=== PATIENT | male | born 1975 ===

== ENCOUNTER 2020-04-15 07:15 | Outpatient (REF) | payer BC, SELFPAY ==
[2020-04-15 07:47] LABS: Basophils Percent Auto 0.3 % (0-2); Eosinophils Absolute Auto 0.2 X10*3/uL (0.0-0.4); Eosinophils Percent Auto 2.7 % (0-4); Hematocrit 46.9 % (42-52); Hemoglobin 15.5 g/dl (14.0-18.0); Imm Gran Abs Auto 0.03 X10*3/uL (0.00-0.03); Imm Gran Pct Auto 0.4 % (0.0-0.4); Lymphocytes Absolute Auto 2.2 X10*3/uL (1.2-4.9); Lymphocytes Percent Auto 28.4 % (20-40); MANUAL DIFF FLAG NO; Mean Corpuscular Hemoglobin 29.9 pg (27.0-33.0); Mean Corpuscular Volume 90.4 fL (80-98); Mean Platelet Volume 12.2 fL (9.4-12.4); Monocytes Absolute Auto 0.5 X10*3/uL (0.1-1.2); Monocytes Percent Auto 6.7 % (2-11); Neutrophils Absolute Auto 4.8 X10*3/uL (2.0-8.3); Neutrophils Percent Auto 61.5 % (45-73); Platelet Count 213 X10*3/uL (160-400); Red Blood Count 5.19 X10*6/uL (4.60-5.80); Red Cell Distribution Width 12.6 % (11.0-16.0); White Blood Count 7.8 X10*3/uL (4.8-10.8)
[2020-04-15 08:24] LABS: Alanine Aminotransferase 22 U/L (0-40); Albumin Level 4.5 g/dL (3.5-5.0); Alkaline Phosphatase 96 U/L (39-117); Anion Gap 14 (12-20); Aspartate Amino Transferase 17 U/L (5-37); Bilirubin Total 1.4 mg/dL (0.0-1.0); Blood Urea Nitrogen 17 mg/dL (9-16); Calcium 9.1 mg/dL (8.4-10.2); Carbon Dioxide 26 mmol/L (22-29); Chloride 106 mmol/L (96-108); Cholesterol 111 mg/dL; Estimated Glomerular Filt Rate > 60; Glucose Fasting 116 mg/dL (60-99); HDL Cholesterol 39 mg/dL; LDL Cholesterol Calculated 62 mg/dl; Potassium 4.1 mmol/L (3.3-5.1); Sodium 142 mmol/L (135-145); Total Protein 7.6 g/dL (6.5-8.0); Triglycerides 53 mg/dL
[2020-04-15 08:26] LABS: Estimated Average Glucose 126 mg/dL
[2020-04-15 08:30] LABS: Microalbum/Creatinine Ratio Ur 15.6 ug/mg cr
== END 2020-04-15 07:16 | disposition home or self-care (01) ==
LOC: HO.LAB 07:15
PROVIDERS: Visit Provider Internal Medicine Medical Oncology
DX: E10.9 Type 1 diabetes mellitus without complications (principal); E78.1 Pure hyperglyceridemia; E78.2 Mixed hyperlipidemia; E66.3 Overweight; Z87.891 Personal history of nicotine dependence
CPT/HCPCS: 36415; 80053; 80061; 82043; 83036; 85025

== ENCOUNTER 2021-05-05 07:16 | Outpatient (REF) | payer BC, SELFPAY ==
[2021-05-05 07:41] LABS: MANUAL DIFF FLAG NO
[2021-05-05 08:03] LABS: Basophils Percent Auto 0.3 % (0-2); Eosinophils Absolute Auto 0.2 X10*3/uL (0.0-0.4); Eosinophils Percent Auto 2.8 % (0-4); Hematocrit 46.3 % (42.0-52.0); Hemoglobin 15.2 g/dl (14.0-18.0); Imm Gran Abs Auto 0.02 X10*3/uL (0.00-0.03); Imm Gran Pct Auto 0.3 % (0.0-0.4); Lymphocytes Absolute Auto 2.3 X10*3/uL (1.2-4.9); Lymphocytes Percent Auto 31.7 % (20-40); Mean Corpuscular HGB Conc 32.8 g/dl (31.0-36.0); Mean Corpuscular Hemoglobin 29.5 pg (27.0-33.0); Mean Corpuscular Volume 89.9 fL (80.0-98.0); Mean Platelet Volume 12.1 fL (9.4-12.4); Monocytes Absolute Auto 0.6 X10*3/uL (0.1-1.2); Monocytes Percent Auto 7.7 % (2-11); Neutrophils Absolute Auto 4.1 x10*3/uL (2.0-8.3); Neutrophils Percent Auto 57.2 % (45-73); Platelet Count 210 X10*3/uL (160-400); Red Blood Count 5.15 X10*6/uL (4.60-5.80); Red Cell Distribution Width 12.5 % (11.0-16.0); White Blood Count 7.2 X10*3/uL (4.8-10.8)
[2021-05-05 08:19] LABS: Estimated Average Glucose 157 mg/dL; Hemoglobin A1c % 7.1 %
[2021-05-05 08:21] LABS: Alanine Aminotransferase 20 U/L (0-40); Albumin Level 4.2 g/dL (3.5-5.0); Alkaline Phosphatase 105 U/L (39-117); Anion Gap 11 (12-20); Aspartate Amino Transferase 15 U/L (5-37); Bilirubin Total 0.6 mg/dL (0.0-1.0); Blood Urea Nitrogen 15 mg/dL (9-16); Calcium 9.3 mg/dL (8.4-10.2); Carbon Dioxide 28 mmol/L (22-29); Chloride 108 mmol/L (96-108); Cholesterol 117 mg/dL; Estimated Glomerular Filt Rate > 60; Glucose Fasting 151 mg/dL (60-99); HDL Cholesterol 35 mg/dL; LDL Cholesterol Calculated 46 mg/dl; Potassium 4.6 mmol/L (3.3-5.1); Sodium 142 mmol/L (135-145); Total Protein 7.4 g/dL (6.5-8.0); Triglycerides 183 mg/dL
== END 2021-05-05 07:17 | disposition home or self-care (01) ==
LOC: HO.LAB 07:16
PROVIDERS: PCP Internal Medicine Medical Oncology; Visit Provider Internal Medicine Medical Oncology
DX: E10.9 Type 1 diabetes mellitus without complications (principal); E78.1 Pure hyperglyceridemia; E78.2 Mixed hyperlipidemia
CPT/HCPCS: 36415; 80053; 80061; 83036; 85025

== ENCOUNTER 2021-07-07 06:51 | Outpatient (REF) | payer BC, SELFPAY ==
[2021-07-07 07:07] LABS: MANUAL DIFF FLAG NO
[2021-07-07 07:47] LABS: Basophils Percent Auto 0.3 % (0-2); Eosinophils Absolute Auto 0.3 X10*3/uL (0.0-0.4); Eosinophils Percent Auto 3.2 % (0-4); Hematocrit 47.1 % (42.0-52.0); Hemoglobin 15.2 g/dl (14.0-18.0); Imm Gran Abs Auto 0.01 X10*3/uL (0.00-0.03); Imm Gran Pct Auto 0.1 % (0.0-0.4); Lymphocytes Absolute Auto 2.7 X10*3/uL (1.2-4.9); Lymphocytes Percent Auto 30.6 % (20-40); Mean Corpuscular HGB Conc 32.3 g/dl (31.0-36.0); Mean Corpuscular Hemoglobin 28.8 pg (27.0-33.0); Mean Corpuscular Volume 89.4 fL (80.0-98.0); Mean Platelet Volume 12.4 fL (9.4-12.4); Monocytes Absolute Auto 0.7 X10*3/uL (0.1-1.2); Monocytes Percent Auto 7.9 % (2-11); Neutrophils Percent Auto 57.9 % (45-73); Platelet Count 215 X10*3/uL (160-400); Red Blood Count 5.27 X10*6/uL (4.60-5.80); Red Cell Distribution Width 12.7 % (11.0-16.0); White Blood Count 8.7 X10*3/uL (4.8-10.8)
[2021-07-07 08:05] LABS: Estimated Average Glucose 143 mg/dL; Hemoglobin A1c % 6.6 %
[2021-07-07 08:11] LABS: Alanine Aminotransferase 23 U/L (0-40); Albumin Level 4.3 g/dL (3.5-5.0); Alkaline Phosphatase 96 U/L (39-117); Anion Gap 9 (12-20); Aspartate Amino Transferase 17 U/L (5-37); Bilirubin Total 0.7 mg/dL (0.0-1.0); Blood Urea Nitrogen 17 mg/dL (9-16); Calcium 9.3 mg/dL (8.4-10.2); Carbon Dioxide 28 mmol/L (22-29); Chloride 107 mmol/L (96-108); Estimated Glomerular Filt Rate > 60; Glucose Fasting 144 mg/dL (60-99); Potassium 4.1 mmol/L (3.3-5.1); Sodium 140 mmol/L (135-145); Total Protein 7.4 g/dL (6.5-8.0)
== END 2021-07-07 06:52 | disposition home or self-care (01) ==
LOC: HO.LAB 06:51
PROVIDERS: PCP Internal Medicine Medical Oncology; Visit Provider Internal Medicine Medical Oncology
DX: E10.9 Type 1 diabetes mellitus without complications (principal); E78.2 Mixed hyperlipidemia
CPT/HCPCS: 36415; 80053; 83036; 85025

== ENCOUNTER 2022-03-30 07:41 | Outpatient (REF) | payer BC, SELFPAY ==
[2022-03-30 07:49] LABS: MANUAL DIFF FLAG NO
[2022-03-30 08:31] LABS: Basophils Absolute Auto 0.1 X10*3/uL (0.0-0.2); Basophils Percent Auto 0.6 % (0-2); Eosinophils Absolute Auto 0.3 X10*3/uL (0.0-0.4); Eosinophils Percent Auto 2.9 % (0-4); Hematocrit 47.2 % (42.0-52.0); Hemoglobin 15.5 g/dl (14.0-18.0); Imm Gran Abs Auto 0.02 X10*3/uL (0.00-0.03); Imm Gran Pct Auto 0.2 % (0.0-0.4); Lymphocytes Absolute Auto 3.2 X10*3/uL (1.2-4.9); Lymphocytes Percent Auto 35.5 % (20-40); Mean Corpuscular HGB Conc 32.8 g/dl (31.0-36.0); Mean Corpuscular Hemoglobin 29.7 pg (27.0-33.0); Mean Corpuscular Volume 90.4 fL (80.0-98.0); Mean Platelet Volume 12.5 fL (9.4-12.4); Monocytes Absolute Auto 0.7 X10*3/uL (0.1-1.2); Monocytes Percent Auto 7.2 % (2-11); Neutrophils Absolute Auto 4.8 x10*3/uL (2.0-8.3); Neutrophils Percent Auto 53.6 % (45-73); Platelet Count 196 X10*3/uL (160-400); Red Blood Count 5.22 X10*6/uL (4.60-5.80); Red Cell Distribution Width 12.7 % (11.0-16.0)
[2022-03-30 08:44] LABS: Estimated Average Glucose 148 mg/dL; Hemoglobin A1c % 6.8 %
[2022-03-30 08:57] LABS: Alanine Aminotransferase 26 U/L (0-40); Albumin Level 4.4 g/dL (3.5-5.0); Alkaline Phosphatase 106 U/L (39-117); Anion Gap 10 (12-20); Aspartate Amino Transferase 16 U/L (5-37); Bilirubin Total 0.9 mg/dL (0.0-1.0); Blood Urea Nitrogen 18 mg/dL (9-16); Calcium 9.3 mg/dL (8.4-10.2); Carbon Dioxide 28 mmol/L (22-29); Chloride 110 mmol/L (96-108); Cholesterol 115 mg/dL; Estimated Glomerular Filt Rate > 60; Glucose Fasting 125 mg/dL (60-99); HDL Cholesterol 38 mg/dL; LDL Cholesterol Calculated 58 mg/dl; Potassium 4.1 mmol/L (3.3-5.1); Sodium 144 mmol/L (135-145); Total Protein 7.5 g/dL (6.5-8.0); Triglycerides 95 mg/dL
[2022-03-30 09:13] LABS: Prostate Specific Antigen 0.57 ng/mL (<0.05-4.0)
== END 2022-03-30 07:42 | disposition home or self-care (01) ==
LOC: HO.LAB 07:41
PROVIDERS: PCP Internal Medicine Medical Oncology; Visit Provider Internal Medicine Medical Oncology
DX: E10.9 Type 1 diabetes mellitus without complications (principal); E78.1 Pure hyperglyceridemia; E66.3 Overweight; Z12.5 Encounter for screening for malignant neoplasm of prostate
CPT/HCPCS: 36415; 80053; 80061; 83036; 84153; 85025

== ENCOUNTER 2022-07-13 07:05 | Outpatient (REF) | payer BC, SELFPAY ==
[2022-07-13 07:15] LABS: MANUAL DIFF FLAG NO
[2022-07-13 07:29] LABS: Basophils Percent Auto 0.3 % (0-2); Eosinophils Absolute Auto 0.2 X10*3/uL (0.0-0.4); Eosinophils Percent Auto 2.6 % (0-4); Hematocrit 49.7 % (42.0-52.0); Hemoglobin 16.1 g/dl (14.0-18.0); Imm Gran Abs Auto 0.03 X10*3/uL (0.00-0.03); Imm Gran Pct Auto 0.4 % (0.0-0.4); Lymphocytes Absolute Auto 2.1 X10*3/uL (1.2-4.9); Lymphocytes Percent Auto 30.1 % (20-40); Mean Corpuscular HGB Conc 32.4 g/dl (31.0-36.0); Mean Corpuscular Hemoglobin 29.7 pg (27.0-33.0); Mean Corpuscular Volume 91.5 fL (80.0-98.0); Mean Platelet Volume 12.3 fL (9.4-12.4); Monocytes Absolute Auto 0.5 X10*3/uL (0.1-1.2); Monocytes Percent Auto 7.2 % (2-11); Neutrophils Absolute Auto 4.1 x10*3/uL (2.0-8.3); Neutrophils Percent Auto 59.4 % (45-73); Platelet Count 194 X10*3/uL (160-400); Red Blood Count 5.43 X10*6/uL (4.60-5.80); Red Cell Distribution Width 13.3 % (11.0-16.0); White Blood Count 6.9 X10*3/uL (4.8-10.8)
[2022-07-13 07:38] LABS: Estimated Average Glucose 137 mg/dL; Hemoglobin A1c % 6.4 %
[2022-07-13 08:12] LABS: Alanine Aminotransferase 20 U/L (0-40); Albumin Level 4.5 g/dL (3.5-5.0); Alkaline Phosphatase 102 U/L (39-117); Anion Gap 15 (12-20); Aspartate Amino Transferase 16 U/L (5-37); Bilirubin Total 1.1 mg/dL (0.0-1.0); Blood Urea Nitrogen 15 mg/dL (9-16); Calcium 9.3 mg/dL (8.4-10.2); Carbon Dioxide 24 mmol/L (22-29); Chloride 109 mmol/L (96-108); Cholesterol 118 mg/dL; Estimated Glomerular Filt Rate > 60; Glucose Random 149 mg/dL (60-115); HDL Cholesterol 38 mg/dL; Potassium 4.9 mmol/L (3.3-5.1); Sodium 143 mmol/L (135-145); Total Protein 7.4 g/dL (6.5-8.0)
[2022-07-13 11:28] LABS: Prostate Specific Antigen 0.47 ng/mL (<0.05-4.0)
[2022-07-13 16:00] LABS: LDL Cholesterol Calculated 70 mg/dl; Triglycerides 52 mg/dL
== END 2022-07-13 07:06 | disposition home or self-care (01) ==
LOC: HO.LAB 07:05
PROVIDERS: PCP Internal Medicine Medical Oncology; Visit Provider Internal Medicine Medical Oncology
DX: Z12.5 Encounter for screening for malignant neoplasm of prostate (principal); E10.9 Type 1 diabetes mellitus without complications; E78.1 Pure hyperglyceridemia; E66.3 Overweight
CPT/HCPCS: 36415; 80053; 80061; 83036; 84153; 85025

== ENCOUNTER 2022-08-23 06:45 | Day surgery (SDC) | payer BC, SELFPAY ==
--- NOTE | 2022-08-22 12:03 | HO.ANESPROP2 ---
Documented by User: Sandi Rg NP 08/22/22 12:04 HPI - Anesthesia Eval Consult details Narrative: 47yo M for Colonoscopy PMFSH Past Medical History Medical History Diabetes Elevated cholesterol Surgical History Surgical History (Updated 08/23/22 @ 06:57 by Rebekah Rodriguez, RN) No pertinent past surgical history Social History Social History Patient Tobacco Use Status: Never used Tobacco Use of substances other than those prescribed or required for medical reasons: Yes Substance Use Frequency: Daily Are you DNR?: No Advance Directives: No Advance Directives Information Provided: Yes Meds Allergies Allergy/AdvReac Type Severity Reaction Status Date / Time No Known Allergies Allergy Unverified 12/02/19 17:44 [No Known Allergies*] Home Medications Medication Instructions Recorded Confirmed Last Taken Type atorvastatin 20 mg tablet 20 mg PO BEDTIME 08/22/22 08/22/22 Unknown History metformin 500 mg tablet,extended 1,000 mg PO BID 08/22/22 08/22/22 Unknown History release 24 hr Exam Exam Date and Time: August 22, 2022 1203 Pertinent Lab Results Pertinent Lab Results: Laboratory Tests 07/13/22 07/13/22 07:14 07:14 WBC 6.9 Hgb 16.1 Hct 49.7 Plt Count 194 Sodium 143 Potassium 4.9 Chloride 109 H Carbon Dioxide 24 BUN 15 Creatinine 0.97 Assessment and Plan Assessment Anesthesia Assessment: Chart Reviewed Documented by User: Niesha Otoole MD 08/23/22 08:45 PMFSH Past Medical History Medical History Diabetes Elevated cholesterol Family History Family history of problems with anesthesia: No Surgical History Surgical History (Updated 08/23/22 @ 06:57 by Rebekah Rodriguez RN) No pertinent past surgical history History of Problems with Anesthesia: No Social History Social History Patient Tobacco Use Status: Never used Tobacco Use of substances other than those prescribed or required for medical reasons: Yes Substance Use Frequency: Daily Are you DNR?: No Advance Directives: No Advance Directives Information Provided: Yes Meds Allergies Allergy/AdvReac Type Severity Reaction Status Date / Time No Known Allergies Allergy Unverified 12/02/19 17:44 [No Known Allergies*] Home Medications Medication Instructions Recorded Confirmed Last Taken Type atorvastatin 20 mg tablet 20 mg PO BEDTIME 08/22/22 08/22/22 Unknown History metformin 500 mg tablet,extended 1,000 mg PO BID 08/22/22 08/22/22 Unknown History release 24 hr Exam Airway Mallampati Class: II TM Dist: >3cm Neck ROM: Full Heart: rrr Lungs: cta Assessment and Plan Assessment Anesthesia Assessment: Anesthesia Plan Discussed (keith villarreal , last used last night ) Final Anesthetic Review Family History of Problems with Anesthesia: No History of Problems with Anesthesia: No NPO: Yes ASA Class: II Final Preanesthetic Review: No Changes in Pt Med Stat, Meds/Allgs Chart Reviewed, Consent Obtained/Reviewed and Anes Risks/Benef Reviewed Patient Risk: Low Procedure Risk: Low Anesthetic Plan Anesthetic Plan: MAC: Disposition: Standard PACU
[2022-08-23 06:58] VITALS: BMI 27.3
[2022-08-23 07:12] VITALS: BP 153/106; PULSE 75; RESP 15; TEMP 36.3; O2SAT 98
[2022-08-23] MEDS: Lactated Ringers 1,000 ML 100 ML IVCONT (07:18)
[2022-08-23 07:26] LABS: Glucose, Whole Blood 183 mg/dL (60-115)
--- NOTE | 2022-08-23 09:10 | MHC.SHP ---
Pre-Procedural Eval Section A Date of Service: 08/23/22 The patient is an INPATIENT: No Changes since office visit: No Cold of Flu in the past 2 weeks, No New Medical Problems, No Changes in Medication and No Patient answered all questions The History & Physical has been completed within 30 days and I have reviewed it.: Yes Section B Chief Complaint: screening Allergies: Allergies Allergy/AdvReac Type Severity Reaction Status Date / Time No Known Allergies Allergy Unverified 12/02/19 17:44 [No Known Allergies*] Plan I have reviewed the history and physical and performed a pertinent physical examination on my patient. No changes have occurred unless specified. Time Spent With Patient Time: Total time managing care of this patient today ____ minutes.
--- NOTE | 2022-08-23 09:44 | PM.OP ---
Brief Operative Note Date of Service: 08/23/22 Pre-op diagnosis: screening Procedure: colonoscopy Surgeon: Shay Martinez Anesthesia: MAC Was an Supervisor Spring Up used for this Procedure?: No Estimated blood loss (mL): 2 Pathology: other Condition: stable Disposition: PACU
[2022-08-23 09:47] VITALS: BP 131/92; PULSE 73; RESP 16; TEMP 36.5; O2SAT 100
[2022-08-23 10:02] VITALS: BP 147/109; PULSE 73; RESP 16; TEMP 36.3; O2SAT 98
--- NOTE | 2022-08-23 10:06 | OP_ITS ---
DATE OF SERVICE: 08/23/2022 SURGEON: Shay Martinez MD INDICATIONS: Colon cancer screening. PREOPERATIVE DIAGNOSIS: POSTOPERATIVE DIAGNOSIS: PROCEDURE PERFORMED: Colonoscopy to the terminal ileum with biopsy and snare polypectomy. ESTIMATED BLOOD LOSS: COMPLICATIONS: ANESTHESIA: Monitored anesthesia care. ASSISTANTS: SPECIMENS: DESCRIPTION OF PROCEDURE: History and physical was performed. The risks and benefits of the procedure were explained to the patient and informed consent was obtained. The patient was placed in the left lateral decubitus position. A digital rectal exam was performed and was found to be normal. The Olympus pediatric video colonoscope was introduced into the rectum and advanced to the cecum without difficulty. The cecum was identified by transillumination, palpation, and identification of ileocecal valve. Examination was performed. The scope was removed. He tolerated the procedure well and was returned to the recovery area in stable condition. FINDINGS: The terminal ileum was examined and appeared normal. The visualized colonic mucosa was normal. The quality of the prep was good. Two polyps in the cecum measuring less than 5 mm were removed with the biopsy forceps. At 20 cm was a 7 mm polyp, which was removed with a hot snare and recovered via suction. No other polyps were identified. There was mild to moderate diverticulosis of the sigmoid with scattered diverticula in the right colon. Retroflexed examination was normal. IMPRESSION: Colon polyps. RECOMMENDATION: Follow up the biopsy results. MD JUSTA Meeks/DONATO / [id number]
== END 2022-08-23 10:25 | disposition home or self-care (01) ==
PROVIDERS: PCP Internal Medicine Medical Oncology; Visit Provider Internal Medicine Gastroenterology
PROC: 0DJD8ZZ Inspection of Lower Intestinal Tract, Via Natural or Artificial Opening Endoscopic (ICD-10-PCS; CPT 45378; principal; 2022-08-23 08:20)
DX: Z12.11 Encounter for screening for malignant neoplasm of colon (principal); D12.0 Benign neoplasm of cecum; K63.5 Polyp of colon; K57.30 Diverticulosis of large intestine without perforation or abscess without bleeding; E78.00 Pure hypercholesterolemia, unspecified; E11.9 Type 2 diabetes mellitus without complications; Z79.84 Long term (current) use of oral hypoglycemic drugs
CPT/HCPCS: 45385; 45380; 82947; 88305

== ENCOUNTER 2022-09-03 21:08 | Emergency (ER) | payer BC, SELFPAY ==
[2022-09-03 21:26] VITALS: BP 190/115; PULSE 74; RESP 18; TEMP 36.2; O2SAT 98; BMI 27.3
--- NOTE | 2022-09-03 22:03 | MHC.EDTECH ---
PATIENT BLOOD DRAWN AND SENT TO LAB .
[2022-09-03 22:08] LABS: Basophils Percent Auto 0.4 % (0-2); Eosinophils Absolute Auto 0.2 X10*3/uL (0.0-0.4); Eosinophils Percent Auto 2.1 % (0-4); Hematocrit 43.2 % (42.0-52.0); Hemoglobin 14.5 g/dl (14.0-18.0); Imm Gran Abs Auto 0.01 X10*3/uL (0.00-0.03); Imm Gran Pct Auto 0.1 % (0.0-0.4); Lymphocytes Absolute Auto 2.4 X10*3/uL (1.2-4.9); Lymphocytes Percent Auto 29.5 % (20-40); MANUAL DIFF FLAG NO; Mean Corpuscular HGB Conc 33.6 g/dl (31.0-36.0); Mean Corpuscular Volume 89.3 fL (80.0-98.0); Mean Platelet Volume 11.6 fL (9.4-12.4); Monocytes Absolute Auto 0.6 X10*3/uL (0.1-1.2); Neutrophils Absolute Auto 4.9 x10*3/uL (2.0-8.3); Neutrophils Percent Auto 60.9 % (45-73); Platelet Count 178 X10*3/uL (160-400); Red Blood Count 4.84 X10*6/uL (4.60-5.80); White Blood Count 8.1 X10*3/uL (4.8-10.8)
[2022-09-03 22:20] LABS: Anion Gap 13 (12-20); Blood Urea Nitrogen 16 mg/dL (9-16); Calcium 9.8 mg/dL (8.4-10.2); Carbon Dioxide 27 mmol/L (22-29); Chloride 107 mmol/L (96-108); Creatinine Clr Calc Pharmacy 97.1; Estimated Glomerular Filt Rate > 60; Glucose Random 144 mg/dL (60-115); Potassium 4.3 mmol/L (3.3-5.1); Sodium 143 mmol/L (135-145)
[2022-09-03 22:57] VITALS: BP 182/106; PULSE 61; RESP 20; TEMP 37.1; O2SAT 99
[2022-09-03 23:06] LABS: Glucose, Whole Blood 119 mg/dL (60-115)
[2022-09-04] VITALS: BP 159/100; PULSE 66; RESP 19; TEMP 36.7; O2SAT 97
--- NOTE | 2022-09-04 00:36 | MHC.EDTECH ---
Brought patient cup of ice water and a warm blanket.
--- NOTE | 2022-09-04 01:37 | ED.GENADULT ---
HPI - General Adult General Chief complaint: General Medical Stated complaint: High blood pressure Time Seen by Provider: 09/04/22 01:34 Source: patient Mode of arrival: ambulatory Limitations: no limitations History of Present Illness HPI narrative: Patient history of borderline hypertension, diabetes used to be on medication for hypertension but was stopped as blood pressure was well controlled without medication about 2 years ago patient did not check his blood pressure sent and colonoscopy last week and at that time blood pressure slightly elevated along with a blood sugar patient was started on Trulicity along with metformin at home was 150/111 on arrival it was 190/115 with pulse rate 74 Related Data Home Medications Medication Instructions Recorded Confirmed atorvastatin 20 mg tablet 20 mg PO BEDTIME 08/22/22 08/22/22 metformin 500 mg tablet,extended 1,000 mg PO BID 08/22/22 08/22/22 release 24 hr Previous Rx's Medication Instructions Recorded losartan 50 mg tablet 50 mg PO DAILY #90 tabs 09/04/22 Allergies Allergy/AdvReac Type Severity Reaction Status Date / Time No Known Allergies Allergy Unverified 12/02/19 17:44 [No Known Allergies*] Review of Systems Review of Systems: Yes all other systems are reviewed and are negative [facility] Past Medical History Medical History Diabetes Elevated cholesterol Surgical History No pertinent past surgical history Social History Social History Patient Tobacco Use Status: Never used Tobacco Smoked in Last 30 Days: No Use of substances other than those prescribed or required for medical reasons: No Substance Use Type: Marijuana Advance Directives: No Advance Directives Information Provided: Yes Physical Exam ED Vital Signs: Vital Signs - 24 hr 09/03/22 21:26 09/03/22 22:57 09/04/22 00:00 Temperature 97.2 F 98.8 F 98.0 F Pulse Rate 74 61 66 Respiratory Rate 18 20 19 Blood Pressure 190/115 H 182/106 H 159/100 H Pulse Oximetry 98 99 97 Oxygen Delivery Method Room Air Room Air Room Air 09/04/22 02:00 09/04/22 02:00 09/04/22 02:49 Temperature 97.5 F 97.5 F Pulse Rate 63 68 59 Respiratory Rate 18 17 12 Blood Pressure 155/110 H 153/95 H 126/83 Pulse Oximetry 95 95 Oxygen Delivery Method Room Air Room Air BMI result Body Mass Index 27.3 Appearance: Alert. Oriented X3. No acute distress. Eyes: PERRLA, ENT: Pharynx normal. Oral Mucosa moist Neck: Normal inspection. Neck supple. CVS: Normal heart rate and rhythm. Pulses normal. Respiratory: No respiratory distress. Equal air entry bilateral, no wheezing/rales/rhonchi Abdomen: Soft and nontender. Bowel sounds are present, no mass palpable, no CVA tenderness Skin: Skin warm and dry. Normal skin color. Normal skin turgor. Extremities: No lower extremity edema. No calf tenderness Neuro: Oriented X 3. No motor deficit. No sensory deficit.No cerebellar signs , cranial nerves II-XII intact Medications Administered Discontinued Medications Generic Name Dose Route Start Last Admin Trade Name Freq PRN Reason Stop Dose Admin Losartan Potassium 50 mg 09/04/22 01:56 09/04/22 02:02 Losartan Potassium 50 Mg Tablet PO 09/04/22 01:57 50 mg ONCE ONE Administration Protocol Medical Decision Making Medical Decision Making [facility] Narrative: Patient with hypertension history of same in the past discharge patient home start on losartan blood pressure improved at time of discharge was 126/83. Lab Data [facility] Lab Attestation statement: I reviewed the patient's lab results. 09/03/22 22:03 09/03/22 22:03 Labs: Lab Results 09/03/22 09/03/22 09/03/22 Range/Units 22:03 22:03 23:00 WBC 8.1 (4.8-10.8) X10*3/uL RBC 4.84 (4.60-5.80) X10*6/uL Hgb 14.5 (14.0-18.0) g/dl Hct 43.2 (42.0-52.0) % MCV 89.3 (80.0-98.0) fL MCH 30.0 (27.0-33.0) pg MCHC 33.6 (31.0-36.0) g/dl RDW 13.0 (11.0-16.0) % Plt Count 178 (160-400) X10*3/uL MPV 11.6 (9.4-12.4) fL Immature Gran % (Auto) 0.1 (0.0-0.4) % Neut % (Auto) 60.9 (45-73) % Lymph % (Auto) 29.5 (20-40) % Cottle % (Auto) 7.0 (2-11) % Eos % (Auto) 2.1 (0-4) % Baso % (Auto) 0.4 (0-2) % Lymph # (Auto) 2.4 (1.2-4.9) X10*3/uL Cottle # (Auto) 0.6 (0.1-1.2) X10*3/uL Eos # (Auto) 0.2 (0.0-0.4) X10*3/uL Baso # (Auto) 0.0 (0.0-0.2) X10*3/uL Abs Immat Gran (auto) 0.01 (0.00-0.03) X10*3/uL Absolute Neuts (auto) 4.9 (2.0-8.3) x10*3/uL Absolute Nucleated RBC 0.000 (0.0-0.012) X10*3/uL Nucleated RBC % (auto) 0.0 (0.0-0.2) /100WBC Sodium 143 (135-145) mmol/L Potassium 4.3 (3.3-5.1) mmol/L Chloride 107 (96-108) mmol/L Carbon Dioxide 27 (22-29) mmol/L Anion Gap 13 (12-20) BUN 16 (9-16) mg/dL Creatinine 0.92 (0.5-1.4) mg/dL Estim Creat Clear Calc 97.1 Estimated GFR > 60 POC Glucose 119 H (60-115) mg/dL Random Glucose 144 H (60-115) mg/dL Calcium 9.8 (8.4-10.2) mg/dL Discharge Plan Discharge Clinical Impression: Hypertension Patient Disposition: Home, Self-Care Instructions: Hypertension (ED) Additional Instructions: Decrease salt intake Start taking blood pressure medication 1 tablet daily check blood pressure before medication and before going to bed Normal blood pressure should be less than 135/85 Prescriptions: New losartan 50 mg tablet 50 mg PO DAILY Qty: 90 0RF No Action atorvastatin 20 mg tablet 20 mg PO BEDTIME metformin 500 mg tablet extended release 24 hr 1,000 mg PO BID Interventions: ED Discharge Assessment Last Done: 09/04/22 02:53 Discharge Date/Time: 09/04/22 02:53
[2022-09-04 02:00] VITALS: BP 153/95; BP 155/110; PULSE 63; PULSE 68; RESP 17; RESP 18; TEMP 36.4; O2SAT 95
[2022-09-04] MEDS: Losartan Potassium 50 MG TABLET PO (02:02)
[2022-09-04 02:49] VITALS: BP 126/83; PULSE 59; RESP 12
== END 2022-09-04 02:53 | disposition home or self-care (01) ==
PROVIDERS: Emergency Provider Internal Medicine; PCP Internal Medicine Medical Oncology
DX: I16.0 Hypertensive urgency (principal); Z79.899 Other long term (current) drug therapy
CPT/HCPCS: 36415; 80048; 82947; 85025; 99283; 99284

== ENCOUNTER 2023-08-09 06:59 | Outpatient (REF) | payer BC, SELFPAY ==
[2023-08-09 07:11] LABS: MANUAL DIFF FLAG NO
[2023-08-09 07:55] LABS: Basophils Percent Auto 0.4 % (0-2); Eosinophils Absolute Auto 0.2 X10*3/uL (0.0-0.4); Hematocrit 46.7 % (42.0-52.0); Hemoglobin 16.2 g/dl (14.0-18.0); Imm Gran Abs Auto 0.03 X10*3/uL (0.00-0.03); Imm Gran Pct Auto 0.4 % (0.0-0.4); Lymphocytes Absolute Auto 2.4 X10*3/uL (1.2-4.9); Lymphocytes Percent Auto 32.6 % (20-40); Mean Corpuscular HGB Conc 34.7 g/dl (31.0-36.0); Mean Corpuscular Hemoglobin 30.1 pg (27.0-33.0); Mean Corpuscular Volume 86.6 fL (80.0-98.0); Mean Platelet Volume 12.4 fL (9.4-12.4); Monocytes Absolute Auto 0.5 X10*3/uL (0.1-1.2); Monocytes Percent Auto 6.6 % (2-11); Neutrophils Absolute Auto 4.3 x10*3/uL (2.0-8.3); Platelet Count 211 X10*3/uL (160-400); Red Blood Count 5.39 X10*6/uL (4.60-5.80); White Blood Count 7.4 X10*3/uL (4.8-10.8)
[2023-08-09 08:18] LABS: Hemoglobin A1c % > 14.0 % (<6.0)
[2023-08-09 08:35] LABS: Alanine Aminotransferase 16 U/L (0-40); Albumin Level 4.4 g/dL (3.5-5.0); Alkaline Phosphatase 103 U/L (39-117); Anion Gap 14 (12-20); Aspartate Amino Transferase 15 U/L (5-37); Bilirubin Total 0.6 mg/dL (0.0-1.0); Blood Urea Nitrogen 22 mg/dL (9-16); Carbon Dioxide 29 mmol/L (22-29); Chloride 98 mmol/L (96-108); Cholesterol 168 mg/dL (<200); Estimated Glomerular Filt Rate > 60; HDL Cholesterol 38 mg/dL (>40); LDL Cholesterol Calculated 63 mg/dL (<100); Potassium 3.4 mmol/L (3.3-5.1); Sodium 138 mmol/L (135-145); Total Protein 7.8 g/dL (6.5-8.0); Triglycerides 338 mg/dL (<150)
[2023-08-09 08:44] LABS: Prostate Specific Antigen 1.75 ng/mL (<0.05-4.0)
[2023-08-09 08:46] LABS: Glucose Random 360 mg/dL (60-115)
[2023-08-09 09:25] LABS: Creatinine Urine 97.86 mg/dL; Microalbum/Creatinine Ratio Ur 18.3 ug/mg cr (<30)
== END 2023-08-09 07:00 | disposition home or self-care (01) ==
LOC: HO.LAB 06:59
PROVIDERS: PCP Internal Medicine Medical Oncology; Visit Provider Internal Medicine Medical Oncology
DX: Z12.5 Encounter for screening for malignant neoplasm of prostate (principal); E66.3 Overweight; E10.9 Type 1 diabetes mellitus without complications; E78.2 Mixed hyperlipidemia; N40.0 Benign prostatic hyperplasia without lower urinary tract symptoms
CPT/HCPCS: 36415; 80053; 80061; 82043; 82570; 83036; 84153; 85025

== ENCOUNTER 2025-02-05 07:00 | Outpatient (REF) | payer BC, SELFPAY ==
--- OUTSIDE RECORDS SUMMARY | 2020-05-26 04:42 | XMS_ITS | Continuity of Care Document ---
Author Organization [facility] Address [address] [place] [address] Phone Care Team Providers Care Thread Spinner Name Role Phone Francheska Morrissey MD Unavailable Unavailable Advance Directives Directive Yes / No Effective Date File Name No Information Encounters Encounter Description Practice Location Reason(s) For Visit Diagnoses Date Provider Providers Copied on Encounter [facility], [address], [place], [place], [id number], [place] tel:[phone] Clinical Services Department No Information [facility]. [address] [place], [address], [place]. tel:[phone] Family History Family Member Type Diagnosis Age At Onset No Information Payers Payer name Insurance type Covered republican ID Authoriza tion(s) No Information Social History Type Description Quantity Date Captured Comments Sex Male Smoking Status No Information Chief Complaint And Reason For Visit No Information Reason For Referral Reason For Referral No Information Plan Of Treatment Date Type Action Status Goal Influenza vaccine. Due on due Goal HIV Routine Screening. Due o n due Goal Depression screening. Due on due Goal Td vaccine. Due on due Goal Dental exam. Due on due Goal Lipid panel. Due on due Goal Tdap. Due on due History Of Present Illness Encounter Date Complaint History Of Prese nt Illness No Information Functional Status Date Functional Assessmen t No Information Instructions Date Instruction Additional Infor mation No Information Assessments Type Assessment Date No Information Patient Care Teams Name Effective Dates (start - stop) Status Members No Information
--- OUTSIDE RECORDS SUMMARY | 2023-08-12 04:15 | XMS_ITS ---
Author Organization Ander Clarke III, MD Address [address] [place] [address] [place] [address] Care Team Providers Care Professor Of Psychiatry Name Role Phone Dr. Ander Clarke III Primary Care Provider [phone] Allergies Allergen (clinical drug ingredient) Drug/Non Drug Allergy documented on EMR Reaction Allergy Type Onset Date Status No Known Drug Allergy Unknown Drug Allergy Active REASON FOR VISIT Diabetes, Hyperlipidemia, Hypertension, Benign prosthetic hypertrophy Medications Medication SIG (Take, Route, Frequency, Duration) Notes Start Date End Date Status Atorvastatin Calcium 20 MG TAKE 1 TABLET BY MOUTH EVERYDAY AT BEDTIME Active Chlorthalidone 25 MG as directed Orally once a day 09/18/2022 Active Losartan Potassium 50 MG 1 tablet Orally Once a day 09/23/2022 Active metFORMIN HCl ER 500 MG TAKE 2 TABLETS B Y MOUTH TWICE DAILY WITH MEALS. Active metFORMIN HCl ER 500 MG TAKE 2 TABLETS B Y MOUTH TWICE A DAY WITH MEALS Active Terbinafine HCl 1 % 1 application Weatherization Operations Manager ally twice a day 07/28/2023 Active Atorvastatin Calcium 20 MG TAKE 1 TABLET BY MOUTH EVERY NIGHT AT BEDTIME. Active Social History Tobacco Use: Social History Observation Description Date Details (start date - stop date) Never Smoker NA - NA Sex Assigned At : Social History Observation Description Sex Assigned At Male Tobacco Use/Smoking Question Answer Notes Patient is a nonsmoker Additional Findings: Tobacco Non-User Aggressive non-smoker Vital Signs Height 5 ft 9 in in 08/12/2023 Weight 166 lbs 08/12/2023 BMI 24.51 kg/m2 08/12/2023 Encounters Encounter Location Date Provider Diagnosis Ander Clarke III, MD [address] [place] [address] [place] [address] 08/12/2023 Ander Clarke Mixed hyperlipidemia E78.2 ; Former smoker Z87.891 ; Diabetes mellitus, insulin dependent (IDDM), controlled E10.9 and BPH (benign prostatic hypertrophy) N40.0 Assessments Encounter Date Diagnosis (ICD Code) Assessment Notes Treat ment Notes Treatment Clinical Notes 08/12/2023 Mixed hyperlipidemia (ICD-10 - E78.2) His fasting lipid profile is pending. 08/12/2023 Former smoker (ICD-10 - Z87.891) He is highly motivated not to smoke. We'd formulated a plan to prevent relapse in times of stress and illness. 08/12/2023 Diabetes mellitus, insulin dependent (IDDM), controlled (ICD-10 - E10.9) He has not been taking his medication or watching his diet. He is now back on his metformin conducting his life in a normal fashion. Frequent determinations glucose and triglycerides in nocturia will be obtained. 08/12/2023 BPH (benign prostatic hypertrophy) (ICD-10 - N40.0) We have discussed controlling his glucose as essential to preventing nocturia. We have discussed lifestyle modification in general for good health, as well as to reduce nocturia. Plan Of Treatment Medication Medication Name Sig Start Date Stop Date Notes Atorvastatin Calcium 20 MG TAKE 1 TABLET BY MOUTH EVERYDAY AT BEDTIME Chlorthalidone 25 MG as directed Orally once a day 023 Losartan Potassium 50 MG 1 tablet Orally Once a day 2022 metFORMIN HCl ER 500 MG TAKE 2 TABLETS B Y MOUTH TWICE DAILY WITH MEALS. metFORMIN HCl ER 500 MG TAKE 2 TABLETS B Y MOUTH TWICE A DAY WITH MEALS Terbinafine HCl 1 % 1 application Weatherization Operations Manager ally twice a day 07/28/2023 Atorvastatin Calcium 20 MG TAKE 1 TABLET BY MOUTH EVERY NIGHT AT BEDTIME. Next Appt Details Follow Up: 7-10 day TV, Reas on: TV no tests Provider Name:Ander Clarke , 02/22/2025 03:45:00 PM, [address] [place] [address] [address] HERNA[address]ES, [place], [address], Provider Name:Ander Clarke , 05/25/2025 04:15:00 PM, [address] [place] [address] [place], [address], Provider Name:Ander Clarke , 01/30/2026 04:00:00 PM, [address] [place] [address] DR, [address], [place], [address], Progress Notes * Simon HARRYDOB:1975 (48 yo M)Acc No.[id number]:08/12/2023 Patient: Simon Robertson Provider: Nicholas Clarke MD :1975 A ge:48 Y S ex:Male Date:08/12/2023 Address:[address] [place], [place] [phone] Subjective: * Chief Complaints: * D iabetesHyperlipidemiaHypertensionBenign prosthetic hypertrophy * HPI: * : This telehealth visit took place over 22 minutes with the patient at home and me in my office. He gave consent for billing. A comprehensive database has been assemblyman was reviewed with this patient today. He admits over the last several months to not taking his medication to having extensive indiscretions with alcohol. His hemoglobin A1c was over 14 with glucose over 300. His cholesterol is in the normal range but his triglycerides were over 300 as well. He is not consuming alcohol this time and is back on his metformin. He feels much better. His urinating only twice a night. Is going to return to the office frequently for Lantus checking. In 90 days she will have another hemoglobin A1c. His fasting glucose will be checked frequently. Telehealth L ocation of provider rendering services: { ...} [address] [place] [address] [address] [facility] [address] L ocation of patient: neal ddress listed in demographics for today's visit P atient identification confirmed using: N nathaniel, T elehealth method: T elephone only. Patient not visible to care provider. C onsent: P atient verbally consented to treatment, Patient verbally consented to billing insurance company, Patient informed of any privacy concerns related to method of visit T otal time spent with patient (mins) 1 5 * ROS: G eneral/Constitutional: pain o nly normal aches and pains. C hills d enies.?Fatigue a dmits. F ever d enies. E NT: Decreased hearing d enies. R espiratory: Cough d enies. C ardiovascular: Chest pain with exertion d enies. D yspnea on exertion?denies. S hortness of breath d enies. G astrointestinal: Constipation o ccasional. D ecreased appetite d enies. D iarrhea d enies. H eartburn d enies. N ausea d enies. R ectal bleeding d enies. V omiting d enies. H ematology: bruising d enies. p etechiae d enies. S wollen glands n one have been noted. G enitourinary: Frequent urination t wice a night. M usculoskeletal: Muscle aches d enies. P ainful joints d enies. S ciatica d enies. W eakness t hat is generalized. S kin: Itching d enies. R ondina d enies. S kin lesion(s)?denies. N eurologic: Difficulty speaking d enies. D izziness d enies.?Headache d enies. L ow back pain d enies. P sychiatric: Depressed mood w hich is mild. * Medical History: * Surgical History: D enies Past Surgical Hx * Hospitalization/Major Diagno stic Procedure: D enies Past Hospitalization * Family History: F ather: alive 61 yrs, well. M other: alive 57 yrs, Depresion. S on(s): 6 yrs, well.?2 brother(s) , 2 sister(s) - healthy. 1 son(s) . . His son, Rick, is autistic. His siblings are well. There is no family history of insulin-dependent diabetes or of severe hypertriglyceridemia. * Social History: T obacco Use: T obacco Use/Smoking P atient is a n onsmoker A dditional Findings: Tobacco Non-User A ggressive non-smoker Deanne fox was born in [place]. 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 * Medications: T akingmetFORMIN HCl ER 500 MG Tablet Extended Release 24 Hour TAKE 2 TABLETS BY MOUTH TWICE A DAY WITH MEALS Atorvastatin Calcium 20 MG Tablet TAKE 1 TABLET BY MOUTH EVERYDAY AT BEDTIME Chlorthalidone 25 MG Tablet as directed Orally once a dayLosartan Potassium 50 MG Tablet 1 tablet Orally Once a dayTerbinafine HCl 1 % Cream 1 application Externally twice a day, stop date 11/03/2023metFORMIN HCl ER 500 MG Tablet Extended Release 24 Hour TAKE 2 TABLETS BY MOUTH TWICE DAILY WITH MEALS. Atorvastatin Calcium 20 MG Tablet TAKE 1 TABLET BY MOUTH EVERY NIGHT AT BEDTIME. Medication List reviewed and reconciled with the patientTaking metFORMIN HCl ER 500 MG Tablet Extended Release 24 Hour TAKE 2 TABLETS BY MOUTH TWICE A DAY WITH MEALS Taking Atorvastatin Calcium 20 MG Tablet TAKE 1 TABLET BY MOUTH EVERYDAY AT BEDTIME Taking Chlorthalidone 25 MG Tablet as directed Orally once a dayTaking Losartan Potassium 50 MG Tablet 1 tablet Orally Once a dayTaking Terbinafine HCl 1 % Cream 1 application Externally twice a day, stop date 11/03/2023Taking metFORMIN HCl ER 500 MG Tablet Extended Release 24 Hour TAKE 2 TABLETS BY MOUTH TWICE DAILY WITH MEALS. Taking Atorvastatin Calcium 20 MG Tablet TAKE 1 TABLET BY MOUTH EVERY NIGHT AT BEDTIME. Medication List reviewed and reconciled with the patient * Allergies: N o Known Drug Allergyno[Allergies Verified] Objective: * Vitals: H t: 5 ft 9 in, Wt: 166, BMI:24.51, Ht-cm: 175.26, Wt-k.3. * P ast Orders: Lab:Lipid Panel * Order Date 08/09/2023 07/13/2022 03/30/2022 Triglycerides 338 H (Ref Range: <150 mg/dL) 52 (Ref Range: mg/dL) 95 (Ref Range: mg/dL) Cholesterol 168 (Ref Range: <200 mg/dL) 118 (Ref Range: mg/dL) 115 (Ref Range: mg/dL) LDL Cholesterol Calculated 63 (Ref Range: <100 mg/dL) 70 (Ref Range: mg/dl) 58 (Ref Range: mg/dl) HDL Cholesterol 38 L (Ref Range: >40 mg/dL) 38 (Ref Range: mg/dL) 38 (Ref Range: mg/dL) * Lab:Comprehensive Met. Panel * Order Date 08/09/2023 07/13/2022 Sodium 138 (Ref Range: 135-145 mmol/L) 143 (Ref Range: 135-145 mmol/L) Bilirubin Total 0.6 (Ref Range: 0.0-1.0 mg/dL) 1.1 H (Ref Range: 0.0-1.0 mg/dL) Aspartate Amino Transferase 15 (Ref Range: 5-37 U/L) 16 (Ref Range: 5-37 U/L) Alanine Aminotransferase 16 (Ref Range: 0-40 U/L) 20 (Ref Range: 0-40 U/L) Total Protein 7.8 (Ref Range: 6.5-8.0 g/dL) 7.4 (Ref Range: 6.5-8.0 g/dL) Albumin Level 4.4 (Ref Range: 3.5-5.0 g/dL) 4.5 (Ref Range: 3.5-5.0 g/dL) Alkaline Phosphatase 103 (Ref Range: 39-117 U/L) 102 (Ref Range: 39-117 U/L) Potassium 3.4 (Ref Range: 3.3-5.1 mmol/L) 4.9 (Ref Range: 3.3-5.1 mmol/L) Chloride 98 (Ref Range: 96-108 mmol/L) 109 H (Ref Range: 96-108 mmol/L) Carbon Dioxide 29 (Ref Range: 22-29 mmol/L) 24 (Ref Range: 22-29 mmol/L) Anion Gap 14 (Ref Range: 12-20) 15 (Ref Range: 12-20) Blood Urea Nitrogen 22 H (Ref Range: 9-16 mg/dL) 15 (Ref Range: 9-16 mg/dL) Creatinine 1.18 (Ref Range: 0.5-1.4 mg/dL) 0.97 (Ref Range: 0.5-1.4 mg/dL) Estimated Glomerular Filt Rate > 60 > 60 Glucose Random 360 HH (Ref Range: 60-115 mg/dL) 149 H (Ref Range: 60-115 mg/dL) Calcium 10.0 (Ref Range: 8.4-10.2 mg/dL) 9.3 (Ref Range: 8.4-10.2 mg/dL) * Lab:Complete Blood Count Aut o Diff * Order Date 08/09/2023 09/03/2022 07/13/2022 White Blood Count 7.4 (Ref Range: 4.8-10.8 X10*3/uL) 8.1 (Ref Range: 4.8-10.8 X10*3/uL) 6.9 (Ref Range: 4.8-10.8 X10*3/uL) Red Blood Count 5.39 (Ref Range: 4.60-5.80 X10*6/uL) 4.84 (Ref Range: 4.60-5.80 X10*6/uL) 5.43 (Ref Range: 4.60-5.80 X10*6/uL) Hemoglobin 16.2 (Ref Range: 14.0-18.0 g/dl) 14.5 (Ref Range: 14.0-18.0 g/dl) 16.1 (Ref Range: 14.0-18.0 g/dl) Hematocrit 46.7 (Ref Range: 42.0-52.0 %) 43.2 (Ref Range: 42.0-52.0 %) 49.7 (Ref Range: 42.0-52.0 %) Mean Corpuscular Volume 86.6 (Ref Range: 80.0-98.0 fL) 89.3 (Ref Range: 80.0-98.0 fL) 91.5 (Ref Range: 80.0-98.0 fL) Mean Corpuscular Hemoglobin 30.1 (Ref Range: 27.0-33.0 pg) 30.0 (Ref Range: 27.0-33.0 pg) 29.7 (Ref Range: 27.0-33.0 pg) Mean Corpuscular HGB Conc 34.7 (Ref Range: 31.0-36.0 g/dl) 33.6 (Ref Range: 31.0-36.0 g/dl) 32.4 (Ref Range: 31.0-36.0 g/dl) Red Cell Distribution Width 12.0 (Ref Range: 11.0-16.0 %) 13.0 (Ref Range: 11.0-16.0 %) 13.3 (Ref Range: 11.0-16.0 %) Platelet Count 211 (Ref Range: 160-400 X10*3/uL) 178 (Ref Range: 160-400 X10*3/uL) 194 (Ref Range: 160-400 X10*3/uL) Mean Platelet Volume 12.4 (Ref Range: 9.4-12.4 fL) 11.6 (Ref Range: 9.4-12.4 fL) 12.3 (Ref Range: 9.4-12.4 fL) Neutrophils Percent Auto 58.0 (Ref Range: 45-73 %) 60.9 (Ref Range: 45-73 %) 59.4 (Ref Range: 45-73 %) Imm Gran Pct Auto 0.4 (Ref Range: 0.0-0.4 %) 0.1 (Ref Range: 0.0-0.4 %) 0.4 (Ref Range: 0.0-0.4 %) Lymphocytes Percent Auto 32.6 (Ref Range: 20-40 %) 29.5 (Ref Range: 20-40 %) 30.1 (Ref Range: 20-40 %) Monocytes Percent Auto 6.6 (Ref Range: 2-11 %) 7.0 (Ref Range: 2-11 %) 7.2 (Ref Range: 2-11 %) Eosinophils Percent Auto 2.0 (Ref Range: 0-4 %) 2.1 (Ref Range: 0-4 %) 2.6 (Ref Range: 0-4 %) Basophils Percent Auto 0.4 (Ref Range: 0-2 %) 0.4 (Ref Range: 0-2 %) 0.3 (Ref Range: 0-2 %) NRBC Pct Auto 0.0 (Ref Range: 0.0-0.2 /100WBC) 0.0 (Ref Range: 0.0-0.2 /100WBC) 0.0 (Ref Range: 0.0-0.2 /100WBC) Neutrophils Absolute Auto 4.3 (Ref Range: 2.0-8.3 x10*3/uL) 4.9 (Ref Range: 2.0-8.3 x10*3/uL) 4.1 (Ref Range: 2.0-8.3 x10*3/uL) Imm Gran Abs Auto 0.03 (Ref Range: 0.00-0.03 X10*3/uL) 0.01 (Ref Range: 0.00-0.03 X10*3/uL) 0.03 (Ref Range: 0.00-0.03 X10*3/uL) Lymphocytes Absolute Auto 2.4 (Ref Range: 1.2-4.9 X10*3/uL) 2.4 (Ref Range: 1.2-4.9 X10*3/uL) 2.1 (Ref Range: 1.2-4.9 X10*3/uL) Monocytes Absolute Auto 0.5 (Ref Range: 0.1-1.2 X10*3/uL) 0.6 (Ref Range: 0.1-1.2 X10*3/uL) 0.5 (Ref Range: 0.1-1.2 X10*3/uL) Eosinophils Absolute Auto 0.2 (Ref Range: 0.0-0.4 X10*3/uL) 0.2 (Ref Range: 0.0-0.4 X10*3/uL) 0.2 (Ref Range: 0.0-0.4 X10*3/uL) Basophils Absolute Auto 0.0 (Ref Range: 0.0-0.2 X10*3/uL) 0.0 (Ref Range: 0.0-0.2 X10*3/uL) 0.0 (Ref Range: 0.0-0.2 X10*3/uL) NRBC Abs Auto 0.000 (Ref Range: 0.0-0.012 X10*3/uL) 0.000 (Ref Range: 0.0-0.012 X10*3/uL) 0.000 (Ref Range: 0.0-0.012 X10*3/uL) * Lab:Hemoglobin A1c * Order Date 08/09/2023 07/13/2022 03/30/2022 Hemoglobin A1c % > 14.0 H (Ref Range: <6.0 %) 6.4 (Ref Range: %) 6.8 (Ref Range: %) Estimated Average Glucose TNP (Ref Range: mg/dL) 137 (Ref Range: mg/dL) 148 (Ref Range: mg/dL) * Lab:Microalbumin, Random * Order Date 08/09/2023 04/15/2020 Creatinine Urine 97.86 (Ref Range: mg/dL) 147.00 (Ref Range: mg/dL) Microalbumin Urine 18.0 (Ref Range: mg/L) 23.0 (Ref Range: mg/L) Microalbum Creatinine Ratio Ur 18.3 (Ref Range: <30 ug/mg cr) 15.6 (Ref Range: ug/mg cr) Assessment: * Assessment: 1. M ixed hyperlipidemia - E78.2 (Primary), His fasting lipid profile is pending. 2 . F ormer smoker - Z87.891, He is highly motivated not to smoke. We'd formulated a plan to prevent relapse in times of stress and illness. 3 . D iabetes mellitus, insulin dependent (IDDM), controlled - E10.9, He has not been taking his medication or watching his diet. He is now back on his metformin conducting his life in a normal fashion. Frequent determinations glucose and triglycerides in nocturia will be obtained., Risk: Low 4 . B PH (benign prostatic hypertrophy) - N40.0, We have discussed controlling his glucose as essential to preventing nocturia. We have discussed lifestyle modification in general for good health, as well as to reduce nocturia. Plan: * Treatment: * Procedure Codes: 9 [id number] PHONE E/M BY PHYS 21-30 MIN * Preventive Medicine: Counseling: S moking/Tobacco Use Patient counseled on the dangers of tobacco use and urged to quit. 0 08/11/2023 DM Care Plan: P atient Lifestyle Goals P atient wants to be able to manage diabetes without too much effort. T reatment Goals B lood Sugars less than < 115, HbA1C < 7.0. B arriers n o barriers. S elf-Managment Goals T rea blood sugars twice daily and keep a log. Bring log in to next appointment, Work on weight loss, with a goal of losing 1 lb per week. * Follow Up: 7 -10 day TV (Reason: TV no tests ) * Images: * Sign off status: Completed true * Provider: Nicholas Clarke MD Date: 0 08/12/2023 Generated for Deborah west/Mina/Amadoritting on: 04/07/2024 07:02 AM EST History and Physical Notes * HPI (History of Present Illness) Category Sub-Category Detail Notes Telehealth Location of [facility]:: {...} [address] [facility] [address] Location of patient:: address listed in demographics for today's visit Patient identification confirmed using:: Name, Telehealth method:: Telephone only. Maren ent not visible to care provider. Consent:: Patient verbally c onsented to treatment, Patient verbally consented to billing insurance company, Patient informed of any privacy concerns related to method of visit Total time spent with patient (mins): 15
--- OUTSIDE RECORDS SUMMARY | 2023-08-21 04:45 | XMS_ITS ---
Author Organization Ander Clarke III, MD Address [address] [place] [address] [place] [address] Care Team Providers Care Charge Hand Name Role Phone Dr. Ander Clarke III Primary Care Provider [phone] Allergies Allergen (clinical drug ingredient) Drug/Non Drug Allergy documented on EMR Reaction Allergy Type Onset Date Status No Known Drug Allergy Unknown Drug Allergy Active REASON FOR VISIT Telehealth Medications Medication SIG (Take, Route, Frequency, Duration) Notes Start Date End Date Status Losartan Potassium 50 MG 1 tablet Orally Once a day 09/23/2022 Active Chlorthalidone 25 MG as directed Orally once a day 09/18/2022 Active Terbinafine HCl 1 % 1 application Metal Worker ally twice a day 07/28/2023 Active Atorvastatin Calcium 20 MG TAKE 1 TABLET BY MOUTH EVERY NIGHT AT BEDTIME. Active metFORMIN HCl ER 500 MG TAKE 2 TABLETS B Y MOUTH TWICE DAILY WITH MEALS. Active Atorvastatin Calcium 20 MG TAKE 1 TABLET BY MOUTH EVERYDAY AT BEDTIME Active Social History Tobacco Use: Social History Observation Description Date Details (start date - stop date) Never Smoker NA - NA Sex Assigned At : Social History Observation Description Sex Assigned At Male Tobacco Use/Smoking Question Answer Notes Patient is a nonsmoker Additional Findings: Tobacco Non-User Aggressive non-smoker Encounters Encounter Location Date Provider Diagnosis Ander Clarke III, MD [address] [place] [address] DR [place] Charles [place] [address] 08/21/2023 Ander Clarke Plan Of Treatment Medication Medication Name Sig Start Date Stop Date Notes Losartan Potassium 50 MG 1 tablet Orally Once a day 2022 Chlorthalidone 25 MG as directed Orally once a day 023 Terbinafine HCl 1 % 1 application Metal Worker ally twice a day 07/28/2023 Atorvastatin Calcium 20 MG TAKE 1 TABLET BY MOUTH EVERY NIGHT AT BEDTIME. metFORMIN HCl ER 500 MG TAKE 2 TABLETS B Y MOUTH TWICE DAILY WITH MEALS. Atorvastatin Calcium 20 MG TAKE 1 TABLET BY MOUTH EVERYDAY AT BEDTIME Next Appt Details Provider Name:Ander Clarke , 02/22/2025 03:45:00 PM, [address] [place] [address] [address]RE[address] HERNANDES, [place], [address], Provider Name:Ander Clarke , 05/25/2025 04:15:00 PM, [address] [place] [address] SHREYA HERNANDES, [place], [address], Provider Name:Ander Clarke , 01/30/2026 04:00:00 PM, [address] [place] [address] SHREYA HERNANDES, [place], [address], Progress Notes * Simon HARRYDOB:1975 (49 yo M)Acc No.[id number]:08/21/2023 Patient: Simon PATHAK Provider: Nicholas Clarke MD :1975 A ge:48 Y S ex:Male Date:08/21/2023 Address:[address] [place] [id number] Subjective: * Chief Complaints: * 1 . Telehealth. * HPI: * : Telehealth L ocation of provider rendering services: { ...} [address] [facility] [address] L ocation of patient: neal ddress listed in demographics for today's visit P atient identification confirmed using: LORA Becerra ame T elehealth method: T elephone only. Patient [...] of breath d enies. G astrointestinal: Constipation d enies. D ecreased appetite d enies.?Diarrhea d enies. H eartburn d enies. N ausea d enies. R ectal bleeding?denies. V omiting d enies. H ematology: bruising d enies. p etechiae d enies. S wollen glands n one have been noted. G enitourinary: Frequent urination d enies. M usculoskeletal: Muscle aches d enies. P ainful joints d enies. S ciatica d enies. W eakness d enies. S kin: Itching d enies. R ondina d enies. S kin lesion(s)?denies. N eurologic: Difficulty speaking d enies. D izziness d enies.?Headache d enies. L ow back pain d enies. P sychiatric: Depressed mood d enies. * Medical History: I nsulin-dependent diabetes mellitus onset age 39, Hypertriglyceridemia, Former smoker, Overweight. * Surgical History: D enies Past Surgical Hx . * Hospitalization/Major Diagno stic Procedure: D enies Past Hospitalization . * Family History: F ather: alive 61 [...] ggressive non-smoker Deanne fox was born in [place]. 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 * Medications: T aking Atorvastatin Calcium 20 MG Tablet TAKE 1 TABLET BY MOUTH EVERYDAY AT BEDTIME , Taking Chlorthalidone 25 MG Tablet as directed Orally once a day , Taking Losartan Potassium 50 MG Tablet 1 tablet Orally Once a day , Taking metFORMIN HCl ER 500 MG Tablet Extended Release 24 Hour TAKE 2 TABLETS BY MOUTH TWICE DAILY WITH MEALS. , Taking Atorvastatin Calcium 20 MG Tablet TAKE 1 TABLET BY MOUTH EVERY NIGHT AT BEDTIME. , Taking Terbinafine HCl 1 % Cream 1 application Externally twice a day , Medication List reviewed and reconciled with the patient * Allergies: N o Known Drug Allergy. Objective: * Vitals: Assessment: Plan: * Treatment: * Images: * The named appointment provid er may or may not be the originator of this progress note, and it is not deemed complete until electronically signed by the appointment provider. Sign off status: Pending * Provider: Nicholas Clarke MD Date: 0 08/21/2023 Generated for Deborah west/Mina/Anupam on: 04/07/2024 07:02 AM EST History and Physical Notes * HPI (History of Present Illness) Category Sub-Category Detail Notes [facility] {...} [address] [place] [address] [place] [id number] Location of patient:: address listed in demographics [...]
--- OUTSIDE RECORDS SUMMARY | 2023-10-31 09:38 | XMS_ITS ---
Author Organization Ander Clarke III, MD Address [address] [place] [address] [place] [address] Care Team Providers Care Tugboat Engineer Name Role Phone Dr. Ander Clarke III Primary Care Provider REASON FOR VISIT Diabetic eye exam Social History Sex Assigned At : Social History Observation Description Sex Assigned At Male Encounters Encounter Location Date Provider Diagnosis Ander Clarke III, MD [address] [place] [address] [place] [address] 10/31/2023 Ander Clarke Plan Of Treatment Next Appt Details Provider Name:Ander Clarke , 02/22/2025 03:45:00 PM, [address] [place] [address] [place], [address], Provider Name:Ander Clarke , 05/25/2025 04:15:00 PM, [address] [place] [address] [place], [address], Provider Name:Ander Clarke , 01/30/2026 04:00:00 PM, [address] [place] [address] [place], [address], Progress Notes * Simon HARRYDOPhilippe:1975 (49 yo M)Acc No.[id number]:10/31/2023 Patient: Simon PATHAK :1975 A ge:48 Y S ex:Male Address:[address] [place] [address], [phone] * * Date:
--- OUTSIDE RECORDS SUMMARY | 2025-01-11 04:44 | XMS_ITS ---
Author Organization Ander Clarke III, MD Address [address] [place] [address] [place] [address] Care Team Providers Care Financial Planning Consultant Name Role Phone Dr. Ander Clarke III Primary Care Provider REASON FOR VISIT Diabetic Eye Exam Social History Sex Assigned At : Social History Observation Description Sex Assigned At Male Encounters Encounter Location Date Provider Diagnosis Ander Clarke III, MD [address] [place] [address] [place] [address] 01/11/2025 Ander Clarke Plan Of Treatment Next Appt Details Provider Name:Ander Clarke , 02/22/2025 03:45:00 PM, [address] [place] [address] [place], [address], Provider Name:Ander Clarke , 05/25/2025 04:15:00 PM, [address] [place] [address] [place], [address], Provider Name:Ander Clarke , 01/30/2026 04:00:00 PM, [address] [place] [address] [place], [address], Progress Notes * Simon HARRYDOPhilippe:1975 (49 yo M)Acc No.[id number]:01/11/2025 Patient: Simon PATHAK :1975 A ge:49 Y S ex:Male Address:[address] [place] [address], [address] * * Date:
--- OUTSIDE RECORDS SUMMARY | 2025-01-25 11:00 | XMS_ITS ---
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 Ander Clarke III Primary Care Provider [phone] Allergies Allergen (clinical drug ingredient) Drug/Non Drug Allergy documented on EMR Reaction Allergy Type Onset Date Status No Known Drug Allergy Unknown Drug Allergy Active No Known Food Allergy Unknown Drug Allergy Active Reason For Referral Reason diabetes eye care Diagnosis 1 Diabetes mellitus, i nsulin dependent (IDDM), controlled (E10.9) Referral Organization Ander Clarke III, MD Referring Provider First Name Ander Referring Provider Last Name Tricia Referring Provider Speciality Internal M edicine Referred Provider [facility] Referred Provider Specialty Quality Assurance Calibrator General Notes Linda Rcoa CMA 01/26 10:00:25 AM > I called [facility] at [phone] made patient appt with [facility] for 03/08/2025 at 2:10pm information mailed and called to patient advised patient to call if this day or time is not good for him, Linda Roca METAL GAUGE MAKER 01/26/2025 10:15:23 AM > ref/demo/progress note faxed to [facility] Referral Priority Routine Referral Appointment Date 03/08/2025 REASON FOR VISIT Annual Exam Medications Medication SIG (Take, Route, Frequency, Duration) Notes Start Date End Date Status Lisinopril 10 MG 1 tablet Orally Once a day for 90 days 01/25/2025 Active Atorvastatin Calcium 10 MG 1 tablet Oral ly Once a day for 30 days 01/25/2025 Active metFORMIN HCl ER 500 MG TAKE 2 TABLETS B Y MOUTH TWICE DAILY WITH MEALS. Active Social History Tobacco Use: Social History Observation Description Date Details (start date - stop date) Never Smoker NA - NA Sex Assigned At : Social History Observation Description Sex Assigned At Male Tobacco Control (Standard) Question Answer Notes Tobacco use: Nonsmoker Additional Findings: Tobacco non-user Aggressive nonsmoker AUDIT-C (Standard) Question Answer Notes Did you have a drink containing alcohol in the p ast year? No Points 0 Interpretation Negative Vital Signs Temperature 97.8 degrees Fahrenheit 01/26/20 25 Blood pressure systolic 150 mm Hg 01/26/20 25 Blood pressure diastolic 95 mm Hg 025 Heart Rate 69 /min 01/25/2025 Height 5 ft 9 in in 01/25/2025 Weight 182 lbs 01/25/2025 BMI 26.87 kg/m2 01/25/2025 Encounters Encounter Location Date Provider Diagnosis Ander Clarke III, MD [address] [place] [address] [place] [phone] 01/25/2025 Ander Clarke Overweight E66.3 ; Diabetes mellitus, insulin dependent (IDDM), controlled E10.9 ; Mixed hyperlipidemia E78.2 ; Essential hypertension I10 and BPH (benign prostatic hypertrophy) N40.0 Assessments Encounter Date Diagnosis (ICD Code) Assessment Notes Treat ment Notes Treatment Clinical Notes 01/25/2025 Overweight (ICD-10 - E66.3) He has gained 16 pounds since his last visit in July 2023. We have discussed the effect upon glycemic control of weight gain. We have reviewed diet and nutrition. We made a plan to lose weight at a rate of one half of a pound per week until his body mass index is in the normal range. 01/25/2025 Diabetes mellitus, insulin dependent (IDDM), controlled (ICD-10 - E10.9) He was continued on his metformin. He was given lisinopril and atorvastatin as well. Comprehensive blood work was ordered. Education will be provided at length. 01/25/2025 Mixed hyperlipidemia (ICD-10 - E78.2) The weight gain has been noted. Comprehensive blood work has been ordered. A lipid profile is pending. He was started on atorvastatin 10 mg a day. The risks and benefits and side effects were carefully explained to him in detail and he gave informed consent for the medication. 01/25/2025 Essential hypertension (ICD-10 - I10) His blood pressure is uncontrolled today. He was began on lisinopril 10 mg daily. The side effects were explained to him the benefits were explained to him a follow-up appointment for titration of antihypertensive medication was given to him. He gave informed consent for the lisinopril after explanation of the risks and benefits and side effects. 01/25/2025 BPH (benign prostati c hypertrophy) (ICD-10 - N40.0) He reports that he is not experiencing nocturia 3 some time. Comprehensive blood work is pending. Plan Of Treatment Medication Medication Name Sig Start Date Stop Date Notes Lisinopril 10 MG 1 tablet Orally Once a day for 90 days 01/25/2025 Atorvastatin Calcium 10 MG 1 tablet Oral ly Once a day for 30 days 01/25/2025 metFORMIN HCl ER 500 MG TAKE 2 TABLETS B Y MOUTH TWICE DAILY WITH MEALS. Pending Test Test Name Order Date PROFILE, FASTING (COMPREHENSIVE METABOLI C) 01/25/2025 PSA, TOTAL 01/25/2025 CBC w DIFF 01/25/2025 Lipid Panel 01/25/2025 Microalbumin, Random 01/25/2025 Hemoglobin A1c 01/25/2025 Referrals Referral Date Details 01/26/2025 01/26/2025, diabetes eye care, [facility] Appt Details Follow Up: 4 Weeks,4 Months, Reason: Ov BP check, OV review labs Provider Name:Ander Clarke , 02/22/2025 03:45:00 PM, [address] [place] [address] SH[address] HERNANDES, [place] BUS[place], [phone], Provider Name:Ander Clarke , 05/25/2025 04:15:00 PM, [address] [place] [address] SHREYA HERNANDES, ANN[place] BUSBY, [phone], Provider Name:Ander Clarke , 01/30/2026 04:00:00 PM, [address] [place] [address] [place], [phone], Progress Notes * Rabia HARRY:1975 (49 yo M)Acc No.[id number]:01/25/2025 Progress Notes Patient: Simon PATHAK Provider: Nicholas Clarke MD :1975 A ge:49 Y S ex:Male Date:01/25/2025 Address:[address] [id number] Subjective: * Chief Complaints: * A nnual Exam * HPI: D epression Screening: He returns to the office at the age of 49 for his annual visit. He was last here July 28, 2023. 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 We have referred him to an ground crew chief. He has been taking his metformin. He reports he has stopped taking all of his other medications. We discussed the consequences of this at length. I have prescribed 10 mg of atorvastatin and 10 mg of lisinopril today. His blood pressure was elevated. He was given an appointment to return in the near future to titrate his medication to control his blood pressure. We have discussed his noncompliance at length.? He says he is up-to-date with colonoscopy with Dr. Martinez in [facility]. He denies any nocturia. He has been physically active. Comprehensive blood work was ordered. PHQ-9 L ittle interest or pleasure in doing things?Several days F eeling down, depressed, or hopeless S everal days T rouble falling or staying asleep, or sleeping too much N ot at all F eeling tired or having little energy S everal days P oor appetite or overeating N ot at all F eeling bad about yourself or that you are a failure, or have let yourself or your family down S everal days T rouble concentrating on things, such as reading the newspaper or watching television S everal days M oving or speaking so slowly that other people could have noticed; or the opposite, being so fidgety or restless that you have been moving around a lot more than usual N ot at all T houghts that you would be better off or of hurting yourself in some way N ot at all T otal Score 5 I nterpretation M ild Depression Interpretation and Intervention D epression Screening Findings P ositive S uicide Risk Assessment Performed 1 03/27/2024 C OVID-19 Screening: Questions H ave you had any new onset fever, chills, cough, congestion, sore throat, shortness of breath, muscle aches? N o S ROCKY Questions: SDOH Questions I n the past year have you been worried about losing your housing? N o I n the past year have you or any family members you live with been unable to get any of the following when it was really needed? Check all that apply: N one * ROS: G eneral/Constitutional: pain o nly [...] Depressed mood d enies. * Medical History: * Surgical History: D [...] Social History: T obacco Use: T obacco Control (Standard) T obacco use: N onsmoker A dditional Findings: Tobacco non-user A ggressive nonsmoker D rugs/Alcohol: D rugs H ave you used drugs other than those for medical reasons in the past 12 months? Y es M arijuana? Y es D rug/Alcohol: A MESSI-C (Standard) D id you have a drink containing alcohol in the past year? N o P oints 0 I nterpretation N egative H dominique was born in [place]. 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 * Medications: T akingmetFORMIN HCl ER 500 MG Tablet Extended Release 24 Hour TAKE 2 TABLETS BY MOUTH TWICE DAILY WITH MEALS. Taking metFORMIN HCl ER 500 MG Tablet Extended Release 24 Hour TAKE 2 TABLETS BY MOUTH TWICE DAILY WITH MEALS. DiscontinuedAtorvastatin Calcium 20 MG Tablet TAKE 1 TABLET BY MOUTH EVERYDAY AT BEDTIME Losartan Potassium 50 MG Tablet 1 tablet Orally Once a day Atorvastatin Calcium 20 MG Tablet TAKE 1 TABLET BY MOUTH EVERY NIGHT AT BEDTIME. Terbinafine HCl 1 % Cream 1 application Externally twice a day Chlorthalidone 25 MG Tablet TAKE 1 TABLET BY MOUTH EVERY DAY DIRECTED Medication List reviewed and reconciled with the patientDiscontinued Atorvastatin Calcium 20 MG Tablet TAKE 1 TABLET BY MOUTH EVERYDAY AT BEDTIME Discontinued Losartan Potassium 50 MG Tablet 1 tablet Orally Once a day Discontinued Atorvastatin Calcium 20 MG Tablet TAKE 1 TABLET BY MOUTH EVERY NIGHT AT BEDTIME. Discontinued Terbinafine HCl 1 % Cream 1 application Externally twice a day Discontinued Chlorthalidone 25 MG Tablet TAKE 1 TABLET BY MOUTH EVERY DAY DIRECTED Medication List reviewed and reconciled with the patient * Allergies: N o Known Drug AllergyNo Known Food Allergyno[Allergies Verified] Objective: * Vitals: H t: 5 ft 9 in, Wt: 182, BMI:26.87, BP: 150/95, HR: 69, Temp: 97.8, Ht-cm: 175.26, Wt-k.55. * Examination: G eneral Examination: GENERAL APPEARANCE: p leasant, well nourished, well developed, in no acute distress, calm and relaxed: overweight: man. HEAD: a traumatic, normocephalic. EYES: e anthony, perrla, anicteric, conjugate. EARS: n ormal. NOSE: s eptum intact. ORAL CAVITY: n ormal, unremarkable. NECK/THYROID: n o jugular venous distention, no carotid bruit, thyroid normal. LYMPH NODES: n o enlarged lymph nodes,spleen normal. SKIN: n o suspicious lesions, anicteric. HEART: n o clicks, gallops, murmurs, or rubs, regular rhythm, S1, S2 normal, no s3, or vascular bruits. LUNGS: c lear to auscultation . BREASTS: no masses palpable bilaterally. ABDOMEN: b owel sounds normal, no ascites, no organomegaly, no mass: overweight. RECTAL EXAM: n ot examined. MUSCULOSKELETAL: e xtremities unremarkable, no clubbing, cyanosis or edema. PERIPHERAL PULSES: n ormal. NEUROLOGIC: a lert and oriented, cranial nerves 2-12 grossly intact, deep tendon reflexes 2+ symmetrical, motor strength normal upper and lower extremities, sensory exam intact. PSYCH: a lert, oriented: cognitive function intact: cooperative with exam: good eye contact: speech clear: no auditory or visual hallucinations. ? Assessment: * Assessment: 1. D iabetes mellitus, insulin dependent (IDDM), controlled - E10.9 (Primary) N otes :He was continued on his metformin. He was given lisinopril and atorvastatin as well. Comprehensive blood work was ordered. Education will be provided at length. 2 . O verweight - E66.3 N otes :He has gained 16 pounds since his last visit in July 2023. We have discussed the effect upon glycemic control of weight gain. We have reviewed diet and nutrition. We made a plan to lose weight at a rate of one half of a pound per week until his body mass index is in the normal range. 3 . M ixed hyperlipidemia - E78.2 N otes :The weight gain has been noted. Comprehensive blood work has been ordered. A lipid profile is pending. He was started on atorvastatin 10 mg a day. The risks and benefits and side effects were carefully explained to him in detail and he gave informed consent for the medication. 4 . E ssential hypertension - I10 N otes :His blood pressure is uncontrolled today. He was began on lisinopril 10 mg daily. The side effects were explained to him the benefits were explained to him a follow-up appointment for titration of antihypertensive medication was given to him. He gave informed consent for the lisinopril after explanation of the risks and benefits and side effects. 5 . B PH (benign prostatic hypertrophy) - N40.0 N otes :He reports that he is not experiencing nocturia 3 some time. Comprehensive blood work is pending. Plan: * Treatment: 2. O verweight L AB: PROFILE, FASTING (COMPREHENSIVE METABOLIC) L AB: PSA, TOTAL L AB: CBC w DIFF L AB: Lipid Panel L AB: Microalbumin, Random L AB: Hemoglobin A1c 3. M ixed hyperlipidemia L AB: PROFILE, FASTING (COMPREHENSIVE METABOLIC) L AB: PSA, TOTAL L AB: CBC w DIFF L AB: Lipid Panel L AB: Microalbumin, Random L AB: Hemoglobin A1c 4. E ssential hypertension L AB: PROFILE, FASTING (COMPREHENSIVE METABOLIC) L AB: PSA, TOTAL L AB: CBC w DIFF L AB: Lipid Panel L AB: Microalbumin, Random L AB: Hemoglobin A1c 5. B PH (benign prostatic hypertrophy) L AB: PROFILE, FASTING (COMPREHENSIVE METABOLIC) L AB: PSA, TOTAL L AB: CBC w DIFF L AB: Lipid Panel L AB: Microalbumin, Random L AB: Hemoglobin A1c 6. O thers Continue metFORMIN HCl ER Tablet Extended Release 24 Hour, 500 MG, TAKE 2 TABLETS BY MOUTH TWICE DAILY WITH MEALS.; S tart Atorvastatin Calcium Tablet, 10 MG, 1 tablet, Orally, Once a day, 30 days, 90, Refills 3; S tart Lisinopril Tablet, 10 MG, 1 tablet, Orally, Once a day, 90 days, 90 Tablet, Refills 3. * Procedure Codes: * Preventive Medicine: Counseling: C are goal follow-up plan: Counseling for abnormal BMI given Y es Above Normal BMI Follow-up D ietary management education, guidance, and counseling, Dietary needs education, Exercise promotion: strength training, Exercise promotion: stretching, Feeding regime, Giving encouragement to exercise, Lifestyle education regarding diet, Nutrition / feeding management, Nutrition therapy, Prescribed activity/exercise education, Prescribed diet education, Prescribed dietary intake, Special diet education, Weight monitoring , Intervention, Order not done: Medical or Other reason not done DM Care Plan: P atient Lifestyle Goals P atient wants to be able to manage diabetes without too much effort. T reatment Goals H bA1C < 7.0, Blood Sugars less than < 115. B arriers n o barriers. S elf-Managment Goals W ork on weight loss, with a goal of losing 1 lb per week. * Follow Up: 4 Weeks,4 Months (Reason: Ov BP check, OV review labs) * Images: * Sign off status: Completed true * Provider: Nicholas Clarke MD Date: 03/27/2024 Generated for Deborah west/Mina/eTransmitting on: 04/07/2024 07:02 AM EST History and Physical Notes * HPI (History of Present Illness) Category Sub-Category Detail Notes Depression Screening PHQ-9 Little inte rest or pleasure in doing things: Several days Feeling down, depressed, or hopeless: Se veral days Trouble falling or staying asleep, or sl eeping too much: Not at all Feeling tired or having little energy: S everal days Poor appetite or overeating: Not at all Feeling bad about yourself o r that you are a failure, or have let yourself or your family down: Several days Trouble concentrating on thi ngs, such as reading the newspaper or watching television: Several days Moving or speaking so slowly that other people could have noticed; or the opposite, being so fidgety or restless that you have been moving around a lot more than usual: Not at all Thoughts that you would be b rito off or of hurting yourself in some way: Not at all Total Score: 5 Interpretation: Mild Depression Interpretation and Intervention Depression Dalton harrison Findings: Positive Suicide Risk Assessment Performed: 01/25 COVID-19 Screening Questions Have you had any new onset fever, chills, cough, congestion, sore throat, shortness of breath, muscle aches?: No SDOH Questions SDOH Questions In the past year have you been worried about losing your housing?: No In the past year have you or any family members you live with been unable to get any of the following when it was really needed? Check all that apply:: None Examination Category Sub-Category Detail Notes General Examination GENERAL APPEARANCE: pleasant , well nourished, well developed, in no acute distress, calm and relaxed: overweight: man HEAD: atraumatic, normocep halic EYES: eomi, perrla, anicte willie, conjugate EARS: normal NOSE: septum intact NECK/THYROID: no jugular venous di stention, no carotid bruit, thyroid normal HEART: no clicks, gallops, murmurs, or rubs, regular rhythm, S1, S2 normal, no s3, or vascular bruits LUNGS: clear to auscultatio n ABDOMEN: bowel sounds normal, no ascites, no organomegaly, no mass: overweight NEUROLOGIC: alert and oriented, cranial nerves 2-12 grossly intact, deep tendon reflexes 2+ symmetrical, motor strength normal upper and lower extremities, sensory exam intact SKIN: no suspicious lesion s, anicteric PERIPHERAL PULSES: normal BREASTS: no masses palpable b ilaterally MUSCULOSKELETAL: extremities unremark able, no clubbing, cyanosis or edema LYMPH NODES: no enlarged lymph no vincent,spleen normal RECTAL EXAM: not examined PSYCH: alert, oriented: cog nitive function intact: cooperative with exam: good eye contact: speech clear: no auditory or visual hallucinations ORAL CAVITY: normal, unremarkable Consultation Request Notes Referral Date Referring Provider Referred Provider Not es 01/26/2025 Ander [facility], [facility]
--- OUTSIDE RECORDS SUMMARY | 2025-02-05 07:02 | XMS_ITS | Patient Health Record ---
Author Organization Ander Clarke III, MD Address [address] [place] [address] [address] [place] [address] Care Team Providers Care Garnett Feeder Name Role Phone Dr. Ander Clarke III Primary Care Provider Allergies Allergen (clinical drug ingredient) Drug/Non Drug [...] Provider Speciality Internal M edicine Referred Provider [facility] Referred Provider Specialty Cosmetic Surgeon General Notes Linda Roca [facility] 01/26 10:00:25 AM > I called [facility] at [phone] made patient appt with [facility] for 03/08/2025 at 2:10pm information mailed and called to patient advised patient to call if this day or time is not good for him, Linda Roca [facility] 01/26/2025 10:15:23 AM > ref/demo/progress note faxed to [facility] Referral Priority Routine Referral Appointment Date 03/08/2025 Medications Medication SIG (Take, Route, Frequency, Duration) Notes Start Date End Date Status metFORMIN HCl ER 500 MG TAKE 2 TABLETS B Y MOUTH TWICE DAILY WITH MEALS. Active Lisinopril 10 MG 1 tablet Orally Once a day for 90 days 01/25/2025 Active Atorvastatin Calcium 10 MG 1 tablet Oral ly Once a day for 30 days 01/25/2025 Active Immunizations Vaccine Route Administration Date Status Comme nts Influenza Unknown 11/28/2015 Administered Influenza, quad Unknown 02/18/2022 Administered COVID- 19 Vaccine Unknown 03/01/2021 Administered COVID- 19 Vaccine Unknown 07/22/2020 Administered COVID- 19 Vaccine Unknown 03/19/2022 Administered PPV 23 Unknown 12/16/2016 Administered COVID- 19 Vaccine Unknown 06/24/2020 Administered COVID Moderna Bivalent Unknown 03/19/2022 Administered Flu-ccIIv3, p-free Unknown 03/08/2024 Administered Social History Tobacco Use: Social History Observation [...] ast year? No Points 0 Interpretation Negative Problems Problem Type SNOMED Code ICD Code Onset Dates Problem Status W/U Status Risk Notes Problem 7369385 Former smoker (Z87.891) Active confirmed He is highly motivated not to smoke. We'd formulated a plan to prevent relapse in times of stress and illness. Problem 501515317 Overweight (E66.3) Active confirmed He has gained 16 pounds since his last visit in July 2023. We have discussed the effect upon glycemic control of weight gain. We have reviewed diet and nutrition. We made a plan to lose weight at a rate of one half of a pound per week until his body mass index is in the normal range. Problem 415065945 Mixed hyperlipid emia (E78.2) Active confirmed The weight gain has been noted. Comprehensive blood work has been ordered. A lipid profile is pending. He was started on atorvastatin 10 mg a day. The risks and benefits and side effects were carefully explained to him in detail and he gave informed consent for the medication. Problem Benign prostatic hypertrophy without outflow obstruction (393156918) BPH (benign prostatic hypertrophy) (N40.0) Active confirmed He repo rts that he is not experiencing nocturia 3 some time. Comprehensive blood work is pending. Problem 27142120 Essential hypertension (I10) Active confirmed His blood pressure is uncontrolled today. He was began on lisinopril 10 mg daily. The side effects were explained to him the benefits were explained to him a follow-up appointment for titration of antihypertensi ve medication was given to him. He gave informed consent for the lisinopril after explanation of the risks and benefits and side effects. Problem 403664551 Hypertriglycerid emia (E78.1) Active confirmed He continues his efforts are consuming a healthy diet, low in animal fat and concentrated sweets and carbohydrates. Problem 28584822 Diabetes mellitu s, insulin dependent (IDDM), controlled (E10.9) Active confirmed Low He was continued on his metformin. He was given lisinopril and atorvastatin as well. Comprehensive blood work was ordered. Education will be provided at length. Vital Signs Heart Rate 69 /min 01/25/2025 Temperature 97.8 degrees Fahrenheit 01/25/2025 Blood pressure diastolic 95 mm Hg 01/25/2025 Height 5 ft 9 in in 01/25/2025 Blood pressure systolic 150 mm Hg 01/25/2025 Weight 182 lbs 01/25/2025 BMI 26.87 kg/m2 01/25/2025 Encounters Encounter Location Date Provider Diagnosis Ander Clarke III, MD [address] [place] [address] [address] [id number] 01/25/2025 Ander Clarke Overweight E66.3 ; Diabetes mellitus, insulin dependent (IDDM), controlled E10.9 ; Mixed hyperlipidemia E78.2 ; Essential hypertension I10 and BPH (benign prostatic hypertrophy) N40.0 Ander Clarke III, MD [address] [place] [address] [address] [phone] 01/11/2025 Ander Clarke Assessments Encounter Date Diagnosis (ICD Code) Assessment [...] blood work is pending. Plan Of Treatment Pending Test Test Name Order Date URINE DIP STICK 03/22/2022 PROFILE, FASTING (COMPREHENSIVE METABOLI C) 10/02/2020 PROFILE, FASTING (COMPREHENSIVE METABOLI C) 07/03/2020 PROFILE, FASTING (COMPREHENSIVE METABOLI C) 07/09/2021 PROFILE, FASTING (COMPREHENSIVE METABOLI C) 07/28/2023 PROFILE, FASTING (COMPREHENSIVE METABOLI C) 04/04/2020 PROFILE, FASTING (COMPREHENSIVE METABOLI C) 07/02/2016 PROFILE, FASTING (COMPREHENSIVE METABOLI C) 03/05/2023 PROFILE, FASTING (COMPREHENSIVE METABOLI C) 07/15/2022 PROFILE, FASTING (COMPREHENSIVE METABOLI C) 03/22/2022 PROFILE, FASTING (COMPREHENSIVE METABOLI C) 01/25/2025 PROFILE, FASTING (COMPREHENSIVE METABOLI C) 11/30/2019 PROFILE, FASTING (COMPREHENSIVE METABOLI C) 07/30/2019 PROFILE, FASTING (COMPREHENSIVE METABOLI C) 05/14/2021 PROFILE, FASTING (COMPREHENSIVE METABOLI C) 03/30/2019 PROFILE, FASTING (COMPREHENSIVE METABOLI C) 12/30/2018 PROFILE, FASTING (COMPREHENSIVE METABOLI C) 05/19/2018 PROFILE, FASTING (COMPREHENSIVE METABOLI C) 02/05/2021 PROFILE, FASTING (COMPREHENSIVE METABOLI C) 12/06/2022 PROFILE, FASTING (COMPREHENSIVE METABOLI C) 05/19/2017 HEMOGLOBIN A1C (GLYCOHEMOGLOBIN) 021 HEMOGLOBIN A1C (GLYCOHEMOGLOBIN) 023 HEMOGLOBIN A1C (GLYCOHEMOGLOBIN) 018 HEMOGLOBIN A1C (GLYCOHEMOGLOBIN) 021 HEMOGLOBIN A1C (GLYCOHEMOGLOBIN) 021 HEMOGLOBIN A1C (GLYCOHEMOGLOBIN) 022 HEMOGLOBIN A1C (GLYCOHEMOGLOBIN) 021 HEMOGLOBIN A1C (GLYCOHEMOGLOBIN) 017 HEMOGLOBIN A1C (GLYCOHEMOGLOBIN) 023 HEMOGLOBIN A1C (GLYCOHEMOGLOBIN) 023 HEMOGLOBIN A1C (GLYCOHEMOGLOBIN) 020 HEMOGLOBIN A1C (GLYCOHEMOGLOBIN) 020 HEMOGLOBIN A1C (GLYCOHEMOGLOBIN) 022 HEMOGLOBIN A1C (GLYCOHEMOGLOBIN) 020 HEMOGLOBIN A1C (GLYCOHEMOGLOBIN) 019 HEMOGLOBIN A1C (GLYCOHEMOGLOBIN) 019 LIPID PANEL 12/30/2018 LIPID PANEL 05/19/2018 LIPID PANEL 02/05/2021 LIPID PANEL 12/06/2022 LIPID PANEL 05/19/2017 LIPID PANEL 07/03/2020 LIPID PANEL 04/04/2020 LIPID PANEL 07/02/2016 LIPID PANEL 07/15/2022 LIPID PANEL 03/22/2022 LIPID PANEL 11/30/2019 LIPID PANEL 07/30/2019 LIPID PANEL 03/30/2019 PSA, TOTAL 07/28/2023 PSA, TOTAL 01/25/2025 PSA, TOTAL 12/06/2022 PSA, TOTAL 03/22/2022 MICROALBUMIN, RANDOM 07/30/2019 MICROALBUMIN, RANDOM 03/30/2019 MICROALBUMIN, RANDOM 12/30/2018 MICROALBUMIN, RANDOM 05/19/2018 MICROALBUMIN, RANDOM 03/05/2023 MICROALBUMIN, RANDOM 12/06/2022 MICROALBUMIN, RANDOM 07/03/2020 MICROALBUMIN, RANDOM 04/04/2020 MICROALBUMIN, RANDOM 07/15/2022 CBC w DIFF 11/30/2019 CBC w DIFF 03/22/2022 CBC w DIFF 07/30/2019 CBC w DIFF 03/30/2019 CBC w DIFF 02/05/2021 CBC w DIFF 12/30/2018 CBC w DIFF 10/02/2020 CBC w DIFF 05/19/2018 CBC w DIFF 07/09/2021 CBC w DIFF 05/19/2017 CBC w DIFF 03/05/2023 CBC w DIFF 01/25/2025 CBC w DIFF 07/02/2016 CBC w DIFF 12/06/2022 CBC w DIFF 07/03/2020 CBC w DIFF 04/04/2020 CBC w DIFF 05/14/2021 CBC w DIFF 07/15/2022 US RENAL BILATERAL 09/09/2022 US RENAL DOPPLER 09/09/2022 CBC WITH AUTO DIFF 07/28/2023 SARS COV2 RNA RT PCR 03/02/2021 Lipid Panel 10/02/2020 Lipid Panel 07/09/2021 Lipid Panel 07/28/2023 Lipid Panel 03/05/2023 Lipid Panel 01/25/2025 Metanephrines, 24hr Urine 09/09/2022 Microalbumin, Random 01/25/2025 Microalbumin, Random 07/09/2021 Microalbumin, Random 07/28/2023 Catecholamines, Frac., 24Ur 09/09/2022 Hemoglobin A1c 07/28/2023 Hemoglobin A1c 01/25/2025 Hemoglobin A1c 03/05/2023 Next Appt Details Provider Name:Ander Clarke , 02/22/2025 03:45:00 PM, [address] [place] [address] [address], [place], [phone], Provider Name:Ander Clarke , 05/25/2025 04:15:00 PM, [address] [place] [address] [address], [place], [phone], Provider Name:Ander Clarke , 01/30/2026 04:00:00 PM, [address] [place] [address] [address], [place], [address], Insurance Providers Payer Name Payer Address Payer Phone Subscriber Number Group Number Insured Name Patient Relationship to Insured Coverage Start Date Coverage End Date [facility] [address] [place], [place] [id number] [phone] [id number] Simon Harry Self - patient is the insured Medical (General) History Medical History History ICD Code insulin-dependent diabetes mellitus onse t age 39 hypertriglyceridemia former smoker overweight Surgical History Surgery Date(Month/Year) Denies Past Surgical Hx Hospitalization History Reason Date(Month/Year) Denies Past Hospitalization
--- OUTSIDE RECORDS SUMMARY | 2025-02-05 07:02 | XMS_ITS | Patient Health Record ---
Author Organization [facility] Address [address] [place] [address] Care Team Providers Care Telephone Solicitor Name Role Phone Ander Clarke MD Primary Care Provider Shay Hyman Jr Unavailable [phone] Allergies No Known Allergies Reason For Referral No Information Medications Medication SIG (Take, Route, Frequency, Duration) Notes Start Date End Date Status Atorvastatin Calcium 20 MG Tablet Oral; Duration: 30 Active metFORMIN HCl 500 MG Tablet 2 tablets wi th a meal Orally Twice a day Active MiraLax (colon prep) 17 GM/SCOOP Powder mixed with Gatorade or Crystal Light Orally begin at 5:00 p.m. the day before the procedure; Duration: 1 day 07/25/2022 Active Social History Tobacco Use: Social History Observation Description Date Details (start date - stop date) Never Smoker NA - NA Social History Drugs/Alcohol: Social Info Question Answer Notes Alcohol Screen Did you have a drink containing alcohol in the past year? No Points 0 Interpretation Negative Tobacco Use: Social Info Question Answer Notes Tobacco Use/Smoking Patient is a nonsmoker Additional Details Category Social Info Options Details Miscellaneous: Marital status: single Occupation: [employer] Problems Problem Type SNOMED Code ICD Code Onset Dates Problem Status W/U Status Risk Notes Problem Colon cancer screening (264968298) Colon cancer screening (Z12.11) Active confirmed Problem Pre-procedure evaluation check (738070230) Encounter for other preprocedural examination (Z01.818) Active confirmed Problem Long-term current use of drug therapy (177697816) long term (current) use of oral hypoglycemic drugs (Z79.84) Active confirmed Plan Of Treatment Future Test Test Name Order Date COLONOSCOPY 07/25/2022 Insurance Providers Payer Name Payer Address Payer Phone Subscriber Number Group Number Insured Name Patient Relationship to Insured Coverage Start Date Coverage End Date [facility] [address] [place], [place] [id number] CANDE MOYER Self - patient is the insured Medical (General) History Medical History History ICD Code type II diabetes hypercholesterolemia Surgical History Surgery Date(Month/Year)
[2025-02-05 07:27] LABS: MANUAL DIFF FLAG NO
[2025-02-05 07:53] LABS: Hematocrit 48.6 % (42.0-52.0); Hemoglobin 16.4 g/dl (14.0-18.0); Imm Gran Abs Auto 0.02 X10*3/uL (0.00-0.03); Imm Gran Pct Auto 0.3 % (0.0-0.4); Lymphocytes Absolute Auto 2.1 X10*3/uL (1.2-4.9); Mean Corpuscular HGB Conc 33.7 g/dl (31.0-36.0); Mean Corpuscular Hemoglobin 29.7 pg (27.0-33.0); Mean Corpuscular Volume 88.0 fL (80.0-98.0); NRBC Abs Auto 0.000 X10*3/uL (0.0-0.012); NRBC Pct Auto 0.0 /100WBC (0.0-0.2); Platelet Count 206 X10*3/uL (160-400); Red Blood Count 5.52 X10*6/uL (4.60-5.80); White Blood Count 6.8 X10*3/uL (4.8-10.8)
[2025-02-05 08:08] LABS: Alanine Aminotransferase 11 U/L (0-40); Albumin Level 4.7 g/dL (3.5-5.0); Alkaline Phosphatase 116 U/L (39-117); Anion Gap 14 (12-20); Aspartate Amino Transferase 16 U/L (5-37); Blood Urea Nitrogen 19 mg/dL (9-16); Calcium 9.1 mg/dL (8.4-10.2); Carbon Dioxide 26 mmol/L (22-29); Chloride 109 mmol/L (96-108); Cholesterol 129 mg/dL (<200); Estimated Glomerular Filt Rate > 60; HDL Cholesterol 40 mg/dL (>40); Potassium 4.5 mmol/L (3.3-5.1); Sodium 144 mmol/L (135-145); Total Protein 7.7 g/dL (6.5-8.0); Triglycerides 69 mg/dL (<150)
[2025-02-05 09:11] LABS: Prostate Specific Antigen 0.67 ng/mL (<0.05-4.0)
[2025-02-05 10:03] LABS: Microalbum/Creatinine Ratio Ur 46.8 ug/mg cr (<30)
== END 2025-02-05 07:01 | disposition home or self-care (01) ==
LOC: HO.LAB 07:00
PROVIDERS: PCP Internal Medicine Medical Oncology; Visit Provider Internal Medicine Medical Oncology
DX: E78.2 Mixed hyperlipidemia (principal); E66.3 Overweight; E10.9 Type 1 diabetes mellitus without complications; I10 Essential (primary) hypertension; N40.0 Benign prostatic hyperplasia without lower urinary tract symptoms; Z12.5 Encounter for screening for malignant neoplasm of prostate
CPT/HCPCS: 36415; 80053; 80061; 82043; 82570; 83036; 84153; 85025